=== PATIENT | male | born 1960 | race Caucasian/White ===

== ENCOUNTER → 2023-11-08 | Outpatient (REF) | payer OTHER | LOC: WCC 13:23 | PROVIDERS: ATTEND Nurse Practitioner Family | DX: L02.212 Cutaneous abscess of back [any part, except buttock and flank] (principal) ==

== ENCOUNTER → 2023-11-17 | Outpatient (REF) | payer OTHER | LOC: WCC 13:15 | PROVIDERS: ATTEND Nurse Practitioner Family | DX: L02.212 Cutaneous abscess of back [any part, except buttock and flank] (principal) ==

== ENCOUNTER → 2023-11-24 | Outpatient (REF) | payer OTHER | LOC: WCC 13:18 | PROVIDERS: ATTEND Nurse Practitioner Family | DX: L02.212 Cutaneous abscess of back [any part, except buttock and flank] (principal) ==

== ENCOUNTER → 2023-11-28 | Outpatient (REF) | payer OTHER | LOC: WCC 08:59 | PROVIDERS: ATTEND Nurse Practitioner Family | DX: L02.212 Cutaneous abscess of back [any part, except buttock and flank] (principal) ==